=== PATIENT | female | born 1975 | race Hispanic/Latino ===

== ENCOUNTER 2019-11-02 06:12 | Observation (INO) | payer BC, MEDICAID ==
[2019-10-30 10:47] LABS: Hematocrit 40.7 % (30.3-42.9); Hemoglobin 13.6 gm/dl (10.1-14.3); Mean Corpuscular HGB Conc 34 % (30-34); Mean Corpuscular Volume 88 fl (79-97); Platelet Count 271 K/mm3 (140-440); Red Blood Count 4.61 M/mm3 (3.65-5.03); Red Cell Distribution Width 13.5 % (13.2-15.2)
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
[2019-10-30 11:10] LABS: Albumin 4.4 g/dL (3.9-5); Calcium 9.4 mg/dL (8.4-10.2)
[~2019-11-02 06:12] MED LIST: ACETAMINOPHEN 500 MG TAB PO SCH; SODIUM CHLORIDE 0.9% 500 ML 500 ML IV ONE
[2019-11-02] MEDS ORDERED: LACTATED RINGERS 1,000 ML IV SCH (07:00)
[2019-11-02] MEDS ORDERED: SCOPOLAMINE TRANSDERMAL PATCH 72 HR TD NR (07:00)
[2019-11-02] MEDS ORDERED: GABAPENTIN 300 MG CAP PO NR ×2 (07:00)
[2019-11-02] MEDS ORDERED: CELECOXIB 200 MG CAP PO NR (07:00)
[2019-11-02] MEDS ORDERED: MIDAZOLAM 2 MG/2 ML INJ IV NR (07:00)
[2019-11-02] MEDS ORDERED: FAMOTIDINE 20 MG/2 ML INJ IV NR (07:00)
[2019-11-02] MEDS ORDERED: MORPHINE PF 10MG/10 ML AMPULE ONE (07:10)
[2019-11-02] MEDS ORDERED: CITRIC ACID-SOD CITRATE 500 ML IV ONE (07:23)
[2019-11-02] MEDS ORDERED: ceFAZolin/STERILE WATER 2 GM/20 ML SYRINGE IV NR (07:45)
[2019-11-02] MEDS ORDERED: propofoL 200 MG/20 ML VIAL IV ONE (07:48)
[2019-11-02] MEDS ORDERED: ePHEDrine SULFATE 50 MG/1 ML INJ ONE ×2 (08:34→13:12)
[2019-11-02] MEDS ORDERED: LIDOCAINE MPF (2%) 20 MG/1 ML VIAL 5 ML ONE (09:11)
[2019-11-02] MEDS ORDERED: ROCURONIUM 50 MG/5 ML INJ IV ONE (09:11)
[2019-11-02] MEDS ORDERED: PHENYLEPHRINE/NS 1,000 MCG/10 ML SYRINGE (OR USE) IV ONE (09:50)
[2019-11-02] MEDS ORDERED: GLYCOPYRROLATE 0.4 MG/2 ML INJ ONE ×2 (10:16)
[2019-11-02] MEDS ORDERED: NEOSTIGMINE 10MG/10 ML INJ MDV ONE (10:17)
[2019-11-02] MEDS ORDERED: ONDANSETRON 4 MG/2 ML INJ ONE (10:21)
[2019-11-02] MEDS ORDERED: SODIUM CHLORIDE 0.9% IRR 1,500 ML BOTTLE IR ONE (10:38)
[2019-11-02] MEDS ORDERED: SODIUM CHLORIDE 0.9% 1000 ML 1,000 ML ONE (10:45)
--- NOTE | 2019-11-02 10:57 | Anesthesia Day of Surgery ---
Anesthesia Day of Surgery - Day of Surgery Patient Examined: Yes Patient H&P Reviewed: Yes Patient is NPO: Yes Cardiac Clearance: Yes
[2019-11-02] MEDS ORDERED: ONDANSETRON 4 MG ODT TAB PO PRN (12:01)
[2019-11-02] MEDS ORDERED: ACETAMINOPHEN 325 MG TAB PO PRN (12:01)
[2019-11-02] MEDS ORDERED: NALOXONE 0.4 MG/1 ML INJ IV PRN ×2 (12:01→12:22)
--- NOTE | 2019-11-02 12:01 | Post Operative Note ---
Date of procedure: 10/26/19 Pre-op diagnosis: left hydro non fx kidney Post-op diagnosis: same Findings: large mass hydro Procedure: left nephrectomy Anesthesia: GETA, regional Surgeon: SONA CHUNG Estimated blood loss: 50-100ml Pathology: list (kidney) Specimen disposition: to lab Condition: stable Disposition: PACU
[2019-11-02] MEDS ORDERED: ONDANSETRON 4 MG/2 ML INJ IV PRN (12:22)
[2019-11-02] MEDS ORDERED: NalbUPHINE 10 MG/1 ML INJ IV PRN (12:28)
[2019-11-02] MEDS ORDERED: HYDROmorphone 1 MG/1 ML INJ IV PRN (12:28)
[2019-11-02 13:01] LABS: Basophils % (Auto) 0.2 % (0.0-1.8); Eosinophils % (Auto) 0.2 % (0.0-4.3); Hematocrit 35.6 % (30.3-42.9); Hemoglobin 11.6 gm/dl (10.1-14.3); Lymphocytes # (Auto) 1.3 K/mm3 (1.2-5.4); Lymphocytes % (Auto) 7.6 % (13.4-35.0); Mean Corpuscular HGB Conc 33 % (30-34); Mean Corpuscular Volume 90 fl (79-97); Monocytes # (Auto) 1.1 K/mm3 (0.0-0.8); Monocytes % (Auto) 6.4 % (0.0-7.3); Platelet Count 225 K/mm3 (140-440); Red Blood Count 3.97 M/mm3 (3.65-5.03); Red Cell Distribution Width 13.4 % (13.2-15.2)
[2019-11-02 13:07] LABS: Calcium 7.8 mg/dL (8.4-10.2)
[2019-11-02] MEDS ORDERED: ePHEDrine SULFATE 50 MG/1 ML INJ IM ONE (13:11)
[2019-11-02] MEDS ORDERED: POTASSIUM CHLORIDE 10 MEQ 10 MEQ/100 ML BAG IV SCH (14:00)
[2019-11-02] MEDS ORDERED: ceFAZolin/NS 1 GM/50 ML 1 GM/50 ML BAG IV SCH (14:00)
--- NOTE | 2019-11-02 14:09 | Operative Report ---
PREOPERATIVE DIAGNOSES: Chronic left hydronephrosis, obstructing upper ureteral stone. POSTOPERATIVE DIAGNOSES: Chronic left hydronephrosis, obstructing upper ureteral stone. PROCEDURE: Left nephrectomy. SURGEON: Dr. Simmons and Dr. Osorio. ANESTHESIA: General. FINDINGS: This is a woman with intermittent flank pain. She has had nonfunctioning kidney for many years. We offered her robotic laparoscopic surgery and she wanted open. DESCRIPTION OF PROCEDURE: The patient was brought to the operating room and placed on the operating table. Following induction of anesthesia, she was placed in the left flank up position, prepped and draped in usual sterile fashion. Time-out was taken. The area was marked. An oblique lateral incision was made over the 12th rib carried through the skin and superficial fascia anteriorly. We carried through the latissimus and serratus muscles posteriorly and external and internal oblique anteriorly. The lumbodorsal fascia was opened and the transversus was opened. Small vessels were tied or cauterized. We entered the retroperitoneal space and the kidney was dissected free. We stayed extraperitoneal. We did not open the peritoneum. A retractor was placed and the upper pole was freed within Gerota's well away from the spleen. We dissected the lower pole as well. The stone was visualized. We dissected below the stone to extract the stone with the specimen. Posteriorly, we identified the pedicle, which was small and triply tied and ligated it. Circumferential dissection was carried out. Specimen was removed. Wound was irrigated. A AVINASH was brought out through the dependent portion of the incision. It was secured with a silk. Closure was accomplished with 2 layers of looped PDS and posteriorly with intermittent 0 and #1 Vicryl. The patient tolerated the procedure well. Estimated blood loss was 500 mL. Skin was closed with clips. She was brought to recovery in stable condition. JOB# [id number] CYNDIE/MELIA
--- NOTE | 2019-11-02 15:12 | Post Anesthesia Evaluation ---
- Post Anesthesia Evaluation Patient Participated: Yes Airway Patent: Yes Stable Respiratory Function: Yes Nausea/Vomiting: No Temp > 96.8F: Yes Pain Manageable: Yes Adequeate Hydration: Yes Anesthesia Complications: No Block Receding Appropriately: Yes (Epidural dosed with lidocaine and removed immediately post op. Motor and sensory block receding appropriately.) Other Comments: Received IVF bolus and ephedrine for hypotension in PACU. Pain well controlled (received epidural morphine preop). Post op labs reviewed. OK for transfer to telemetry floor. Continuous pulse oximetry x24hrs ordered for moitoring after duramorph.
[2019-11-02] MEDS: ceFAZolin/NS 1 GM/50 ML 1 GM/50 ML BAG IV SCH ×2 (15:22→21:46)
[2019-11-02] MEDS: D5W/0.45% NACL/KCL 20 MEQ 20 MEQ/1,000 ML BAG IV SCH (16:20)
[2019-11-02] MEDS ORDERED: ZOLPIDEM 5 MG TAB PO PRN (22:00)
[2019-11-03] MEDS: ceFAZolin/NS 1 GM/50 ML 1 GM/50 ML BAG IV SCH ×3 (06:14→22:24)
[2019-11-03] MEDS: D5W/0.45% NACL/KCL 20 MEQ 20 MEQ/1,000 ML BAG IV SCH (06:15)
--- NOTE | 2019-11-03 08:40 | Progress Note ---
Assessment and Plan looks well oob spirometry Subjective Date of service: 11/03/19 Principal diagnosis: hydro Objective - Constitutional Vitals: Vital Signs - 12hr 11/02/19 11/02/19 11/03/19 22:48 22:51 03:36 Temperature 100.0 F H 99.9 F H Pulse Rate 87 91 H 90 Pulse Rate [ 91 H From Monitor] Respiratory 16 18 18 Rate Blood Pressure 101/64 95/62 O2 Sat by Pulse 97 99 96 Oximetry 11/03/19 11/03/19 06:51 08:21 Temperature 100.6 F H Pulse Rate 82 84 Pulse Rate [ From Monitor] Respiratory 20 Rate Blood Pressure 114/75 O2 Sat by Pulse 96 Oximetry General appearance: Present: no acute distress - Neck Neck: supple - Respiratory Respiratory effort: normal Extremities: no ischemia - Gastrointestinal General gastrointestinal: Present: soft, non-tender - Labs CBC & Chem 7: 11/02/19 12:40 11/02/19 12:40 Labs: Abnormal lab results 11/02/19 11/02/19 11/02/19 Range/Units 06:50 12:40 12:40 WBC 16.6 H (4.5-11.0) K/mm3 Lymph % (Auto) 7.6 L (13.4-35.0) % [place] # 1.1 H (0.0-0.8) K/mm3 Seg Neutrophils % 85.6 H (40.0-70.0) % Seg Neutrophils # 14.2 H (1.8-7.7) K/mm3 Potassium 3.5 L (3.6-5.0) mmol/L Glucose 116 H (65-100) mg/dL Calcium 7.8 L D (8.4-10.2) mg/dL Crossmatch See Detail Medications & Allergies - Medications Allergies/Adverse Reactions: Allergies No Known Allergies Allergy (Verified 10/29/19 14:55) Home Medications: Home Medications Medication Instructions Recorded Confirmed Last Taken Type Chlorthalidone [Thalitone] 25 mg PO QDAY 10/29/19 11/02/19 11/01/19 21:30 History Losartan [Cozaar] 100 mg PO QDAY 10/29/19 11/02/19 11/01/19 21:30 History Potassium Chloride [Klor-Con 8] 8 meq PO QDAY 10/29/19 11/02/1920 21:30 History hydrALAZINE [Apresoline] 25 mg PO BID 10/29/19 11/02/19 11/01/19 21:30 History Active Medications: Generic Name Dose Route Start Last Admin Trade Name Freq PRN Reason Stop Dose Admin Acetaminophen 650 mg 11/02/19 12:01 Tylenol PO Q4H PRN Pain MILD(1-3)/Fever >100.5/RIVAS Acetaminophen/Hydrocodone Bitart 2 each 11/02/19 12:01 [place] 5/325 PO Q6H PRN Pain, Moderate (4-6) Hydromorphone HCl 0.5 mg 11/02/19 12:28 Dilaudid IV 11/03/19 12:00 Q6H PRN breakthrough pain > 7/10 Potassium Chloride/Dextrose/Sod Cl 20 meq in 1,000 mls @ 125 mls/hr 11/02/19 13:00 11/03/19 06:15 D5w/0.45% Nacl/Kcl 20 Meq IV 125 mls/hr DIRECT LISA Administration Potassium Chloride 10 meq in 100 mls @ 100 mls/hr 11/02/19 14:00 11/02/19 15:17 Kcl 10meq/100ml IV 11/03/19 14:59 100 mls/hr DIRECT LISA Administration Cefazolin Sodium 1 gm in 50 mls @ 100 mls/hr 11/02/19 16:00 11/03/19 06:14 Ancef/Ns 1 Gm/50 Ml IV 11/04/19 06:29 100 mls/hr Q8HR LISA Administration Protocol Nalbuphine HCl 5 mg 11/02/19 12:28 Nalbuphine IV Q6H PRN Itching Naloxone HCl 0.1 mg 11/02/19 12:01 Naloxone IV Q2MIN PRN Res Rate </= 8 or 02 SAT < 92% Naloxone HCl 0.1 mg 11/02/19 12:22 Naloxone IV 11/03/19 12:00 Q2MIN PRN Res Rate </= 8 or 02 SAT < 92% Ondansetron HCl 4 mg 11/02/19 12:01 Zofran Odt PO Q8H PRN Nausea And Vomiting Ondansetron HCl 4 mg 11/02/19 12:22 11/02/19 15:47 Zofran IV 11/03/19 12:00 4 mg Q8H PRN Administration Nausea And Vomiting Zolpidem Tartrate 5 mg 11/02/19 22:00 Ambien PO QHS PRN Sleep
[2019-11-03] MEDS: HYDROcodone/ACETAMINOPHEN 5-325 MG TAB PO PRN ×2 (13:03→22:22)
[2019-11-04] MEDS: HYDROcodone/ACETAMINOPHEN 5-325 MG TAB PO PRN ×2 (06:33→14:42)
[2019-11-04] MEDS: ceFAZolin/NS 1 GM/50 ML 1 GM/50 ML BAG IV SCH (06:34)
[2019-11-04 13:25] VITALS: BP 110/71
--- NOTE | 2019-11-04 13:33 | Discharge Summary ---
Short Stay Discharge Plan Activity: other (no straining ) Weight Bearing Status: Full Weight Bearing Diet: low fat, low cholesterol, low salt Special Instructions: other (inc fluids ) Follow up with: PRIMARY CARE, [Primary Care Provider] - 7 Days SONA CHUNG MD [Staff Physician] - 7 Days
--- NOTE | 2019-11-04 13:33 | Progress Note ---
Assessment and Plan j/p out looks well path pending home today Subjective Date of service: 11/04/19 Principal diagnosis: hydro Objective - Constitutional Vitals: Vital Signs - 12hr 11/04/19 11/04/19 11/04/19 03:04 06:00 08:06 Temperature 99.3 F 99.6 F Pulse Rate 99 H 99 H 86 Respiratory 16 18 Rate Blood Pressure 111/74 113/71 O2 Sat by Pulse 94 93 Oximetry 11/04/19 11:03 Temperature 97.7 F Pulse Rate 78 Respiratory 18 Rate Blood Pressure 110/71 O2 Sat by Pulse 94 Oximetry General appearance: Present: no acute distress - Neck Neck: supple - Respiratory Respiratory effort: normal Extremities: no ischemia - Gastrointestinal General gastrointestinal: Present: soft, non-tender - Labs CBC & Chem 7: 11/02/19 12:40 11/02/19 12:40 Medications & Allergies - Medications Allergies/Adverse Reactions: Allergies No Known Allergies Allergy (Verified 10/29/19 14:55) Home Medications: Home Medications Medication Instructions Recorded Confirmed Last Taken Type Chlorthalidone [Thalitone] 25 mg PO QDAY 10/29/19 11/02/19 11/01/19 21:30 History Losartan [Cozaar] 100 mg PO QDAY 10/29/19 11/02/19 11/01/19 21:30 History Potassium Chloride [Klor-Con 8] 8 meq PO QDAY 10/29/19 11/02/19 11/01/19 21:30 History hydrALAZINE [Apresoline] 25 mg PO BID 10/29/19 11/02/19 11/01/19 21:30 History Active Medications: Generic Name Dose Route Start Last Admin Trade Name Freq PRN Reason Stop Dose Admin Acetaminophen 650 mg 11/02/19 12:01 Tylenol PO Q4H PRN Pain MILD(1-3)/Fever >100.5/RIVAS Acetaminophen/Hydrocodone Bitart 2 each 11/02/19 12:01 11/04/19 06:33 [place] 5/325 PO 2 each Q6H PRN Administration Pain, Moderate (4-6) Potassium Chloride/Dextrose/Sod Cl 20 meq in 1,000 mls @ 125 mls/hr 11/02/19 13:00 11/03/19 06:15 D5w/0.45% Nacl/Kcl 20 Meq IV 125 mls/hr DIRECT LISA Administration Naloxone HCl 0.1 mg 11/02/19 12:01 Naloxone IV Q2MIN PRN Res Rate </= 8 or 02 SAT < 92% Ondansetron HCl 4 mg 11/02/19 12:01 Zofran Odt PO Q8H PRN Nausea And Vomiting Zolpidem Tartrate 5 mg 11/02/19 22:00 Ambien PO QHS PRN Sleep
== END 2019-11-04 15:45 | disposition home or self-care (01) ==
LOC: OR 06:12 → 4A 12:01 → UNDODISOB 22:43
PROVIDERS: ADMIT Urology; ATTEND Urology
DX: Z03.818 Encounter for observation for suspected exposure to other biological agents ruled out (principal); N13.2 Hydronephrosis with renal and ureteral calculous obstruction
CPT/HCPCS: 36415; 36430; 50220; 80048; 80053; 81025; 85025; 85027; 86850; 86900; 86901; 86920; 88307; 94760; 96361; 96365; 96366; 96372; 96375; C9250; G0378; J0690; J2250; J2274; J2370; J2405; J2704; J2710; J3480; J7030; J7120; P9016; U0003